=== PATIENT | female | born 1975 | race Caucasian/White ===

== ENCOUNTER 2019-04-30 14:52 | Emergency (ER) | payer OTHER ==
[2019-04-30 15:28] LABS: URINE APPEARANCE CLEAR; URINE BILIRUBIN NEGATIVE (NEGATIVE); URINE BLOOD SMALL (NEGATIVE); URINE COLOR YELLOW; URINE GLUCOSE (UA) NEGATIVE (NEGATIVE); URINE KETONE NEGATIVE (NEGATIVE); URINE LEUKOCYTE ESTERASE NEGATIVE (NEGATIVE); URINE NITRITE NEGATIVE (NEGATIVE); URINE PROTEIN NEGATIVE (NEGATIVE); URINE UROBILINOGEN 0.2 E.U./dL (0.20 - 1.00)
[2019-04-30 15:40] LABS: URINE BACTERIA NONE SEEN; URINE WBC NONE SEEN (0-2/hpf)
--- NOTE | 2019-04-30 16:11 | Emergency Department Record ---
History of Present Illness - General Chief complaint: Female Urogenital Problem Stated complaint: UTI Time Seen by Provider: 04/30/19 16:04 Source: Patient Mode of Arrival: Ambulatory - History of Present Illness Initial comments: The patient had two small kidney stones and a UTI in [place] on 04-14-19 and was placed on keflex 500 BID for 7 days with resolution of her symptoms. Now that she is travelling to [place] she has had 2 days of dysuria, and frequency without nausea, vomiting fevers, chills, or flank pain. She states she can get into her [place] doctor by Thursday05-03-19 to be rechecked. Complaint: Dysuria Onset/Timin -: Days(s) Location: Suprapubic Severity scale (1-10): 3 Consistency: Constant Improves with: None Worsens with: Urination Patient : No Associated Symptoms: Dysuria - Related Data Home Medications Medication Instructions Recorded Confirmed Last Taken Sertraline HCl [Zoloft] 50 mg PO QHS 04/30/19 04/30/19 04/29/19 Previous Rx's Medication Instructions Recorded Cephalexin [Keflex] 500 mg PO QID #28 cap 04/30/19 Phenazopyridine HCl [Pyridium] 200 mg PO TID #6 tab 04/30/19 Allergies Allergy/AdvReac Type Severity Reaction Status Date / Time No Known Drug Allergies Allergy Verified 04/30/19 15:11 Travel Screening - Travel/Exposure Within Last 30 Days Have you traveled within the last 30 days?: Yes Location Detail:: [place] - Travel/Exposure Within Last Year Have you traveled outside the [place] in the last year?: No - Additonal Travel Details Have you been exposed to anyone with a communicable illness?: No - Travel Symptoms Symptom Screening: None Review of Systems Reviewed: No additional complaints except as noted below Constitutional: Reports: As per HPI. Denies: Chills, Fever, Malaise, Night sweats, Weakness, Weight change Eyes: Reports: As per HPI. Denies: Eye discharge, Eye pain, Photophobia, Vision change ENT: Reports: As per HPI. Denies: Congestion, Dental pain, Ear pain, Epistaxis, Hearing loss, Throat pain Respiratory: Reports: As per HPI. Denies: Cough, Dyspnea, Hemoptysis, Stridor, Wheezes Cardiovascular: Reports: As per HPI. Denies: Arrhythmia, Chest pain, Dyspnea on exertion, Edema, Murmurs, Orthopnea, Palpitations, Paroxysmal nocturnal dyspnea, Rheumatic Fever, Syncope Endocrine: Reports: As per HPI. Denies: Fatigue, Heat or cold intolerance, Polydipsia, Polyuria Gastrointestinal: Reports: As per HPI. Denies: Abdominal pain, Constipation, Diarrhea, Hematemesis, Hematochezia, Melena, Nausea, Vomiting Genitourinary: Reports: As per HPI. Denies: Abnormal menses, Discharge, Dyspareunia, Dysuria, Frequency, Hematuria, Incontinence, Retention, Urgency Musculoskeletal: Reports: As per HPI. Denies: Arthralgia, Back pain, Gout, Joint swelling, Myalgia, Neck pain Skin: Reports: As per HPI. Denies: Bruising, Change in color, Change in hair/nails, Lesions, Pruritus, Rash Neurological: Reports: As per HPI. Denies: Abnormal gait, Confusion, Headache, Numbness, Paresthesias, Seizure, Tingling, Tremors, Vertigo, Weakness Psychiatric: Reports: As per HPI. Denies: Anxiety, Auditory hallucinations, Depression, Homicidal thoughts, Suicidal thoughts, Visual hallucinations Hematological/Lymphatic: Reports: As per HPI. Denies: Anemia, Blood Clots, Easy bleeding, Easy bruising, Swollen glands Past Medical History - SOCIAL HISTORY Smoking Status: Never smoker Alcohol Use: Rare Drug Use: None - RESPIRATORY Hx Respiratory Disorders: No - CARDIOVASCULAR Hx Cardio Disorders: No - NEURO Hx Neuro Disorders: No - GI Hx GI Disorders: No - Hx Genitourinary Disorders: No - ENDOCRINE Hx Endocrine Disorders: No - MUSCULOSKELETAL Hx Musculoskeletal Disorders: No - PSYCH Hx Psych Problems: No - HEMATOLOGY/ONCOLOGY Hx Hematology/Oncology Disorders: No Family Medical History Any Significant Family History?: Yes Hx Anxiety: Mother Hx Diabetes: Grandparents Hx Heart Disease: Mother Hx HTN: Father Hx Liver Disease: Father Hx Resp Disorders: Mother Physical Exam - General General Appearance: Alert, Oriented x3, Cooperative, No acute distress - Head Head exam: Normal inspection - Eye Eye exam: Normal appearance, PERRL, EOMI. negative: Conjunctival injection, Nystagmus Pupils: Normal accommodation - ENT ENT exam: Normal exam, Mucous membranes moist, Normal external ear exam, Normal orophraynx, TM's normal bilaterally Ear exam: Normal external inspection. negative: External canal tenderness Nasal Exam: Normal inspection. negative: Discharge, Sinus tenderness Mouth exam: Normal external inspection, Tongue normal Teeth exam: Normal inspection. negative: Dental caries Throat exam: Normal inspection. negative: Tonsillar erythema, Tonsillar exudate - Neck Neck exam: Normal inspection, Full ROM. negative: Tenderness - Respiratory Respiratory exam: Normal lung sounds bilaterally. negative: Respiratory distress - Cardiovascular Cardiovascular Exam: Regular rate, Normal rhythm, Normal heart sounds - GI/Abdominal GI/Abdominal exam: Soft, Normal bowel sounds, Tenderness (suprapubic and slightly right of midline tenderness on palpation.) - Rectal Rectal exam: Deferred - exam: Deferred - Extremities Extremities exam: Normal inspection, Full ROM, Normal capillary refill. negative: Calf tenderness, Pedal edema, Tenderness - Back Back exam: Reports: Normal inspection, Full ROM. Denies: CVA tenderness (R), CVA tenderness (L), Muscle spasm, Rash noted, Tenderness - Neurological Neurological exam: Alert, CN II-XII intact, Normal gait, Oriented X3, Reflexes normal - Psychiatric Psychiatric exam: Normal affect, Normal mood - Skin Skin exam: Dry, Intact, Normal color, Warm Course Vital Signs 04/30/19 15:13 Temperature 98.7 F Pulse Rate 102 H Respiratory 18 Rate Blood Pressure 126/90 Pulse Ox 97 Medical Decision Making - Data Complexity MDM Data: Labs Ordered and/or Reviewed (UA blood in urine, no bacteria, no LE or Nitrites.) - Lab Data Lab Results 04/30/19 Range/Units 15:20 Urine Color Yellow Urine Appearance Clear Urine pH 5.5 (5.0-8.0) Ur Specific Dolph 1.010 (1.002-1.030) Urine Protein Negative (NEGATIVE) Urine Glucose (UA) Negative (NEGATIVE) Urine Ketones Negative (NEGATIVE) Urine Blood Small H (NEGATIVE) Urine Nitrite Negative (NEGATIVE) Urine Bilirubin Negative (NEGATIVE) Urine Urobilinogen 0.2 (0.20 - 1.00) E.U./dL Ur Leukocyte Esterase Negative (NEGATIVE) Urine RBC 7 - 10 (NONE SEEN) Urine WBC None seen (0-2/hpf) Ur Epithelial Cells 7 - 10 (FEW) Urine Bacteria None seen Disposition Disposition: Discharge Clinical Impression: Dysuria, UTI symptoms Hematuria Qualifiers: Hematuria type: unspecified type Qualified Code(s): R31.9 - Hematuria, unspecified Disposition: Home, Self-Care Condition: (1) Good Instructions: Dysuria (ED), Urinary Tract Infection in Women (ED) Additional Instructions: Take keflex as directed until gone Take pyridium three times a day for two days then stop. This will turn your urine orange. Follow up with your PCP in [place] when you return home this week. Prescriptions: Cephalexin [Keflex] 500 mg PO QID #28 cap Phenazopyridine HCl [Pyridium] 200 mg PO TID #6 tab Quality - Quality Measures Quality Measures: N/A - Blood Pressure Screening Does Patient Have Any of the Following: No Blood Pressure Classification: Hypertensive Reading Systolic Measurement: 126 Diastolic Measurement: 90 Screening for High Blood Pressure: < Normal BP, F/U Not Required > [[id number]]
== END 2019-04-30 16:32 | disposition home or self-care (01) ==
LOC: ER 14:52
DX: R30.0 Dysuria (principal); R31.29 Other microscopic hematuria; Z87.442 Personal history of urinary calculi
CPT/HCPCS: 81001; 99283